=== PATIENT | female | born 1965 | race Caucasian/White ===

== ENCOUNTER → 2019-09-05 | Outpatient (CLI) | payer OTHER ==
--- NOTE | 2019-09-06 09:30 | SLEEP ---
DATE OF STUDY: 09/05/2019 HOME SLEEP STUDY REFERRING PHYSICIAN: Christopher Fowler MD The patient is 54 years old who weighs 260 pounds with a BMI of 40.7. The patient's Meriden score was 20. The patient underwent home sleep study performed at [facility]. Total recording time was 205 minutes. During the night study, the patient had 7 mixed apneas, 1 obstructive apnea, no central apnea and 15 hypopneas. The patient's AHI was 6.7 per hour. Nocturnal oximetry study revealed an average oxygen saturation of 93% with the lowest of 87% and 2.7 minutes were spent in oxygen saturation of less than 90%. Mean heart rate 83 beats per minute. IMPRESSION: 1. Mild sleep apnea-hypopnea syndrome at an AHI of 6.7 per hour. However, the patient had only 3 hours and 25 minutes of recording time, which may have underestimated AHI. The patient has severe subjective hypersomnia with an Meriden score of 20. I would recommend the patient should return for an in-lab sleep study to assess the severity of sleep apnea. RECOMMENDATIONS: 1. Consider in-lab sleep study to better assess the severity of sleep apnea. 2. Avoid [employer] depressants. 3. Caution regarding driving until the patient's hypersomnia is resolved. 4. Weight loss is strongly advised. CHRISTOPHER FOWLER MD DR: AIDAN/erica JOB#: [id number] / [id number] LEANDER
== END | disposition home or self-care (01) ==
LOC: RT 09:04
PROVIDERS: ATTEND Internal Medicine Critical Care Medicine
DX: G47.33 Obstructive sleep apnea (adult) (pediatric) (principal); G47.10 Hypersomnia, unspecified
CPT/HCPCS: G0399